=== PATIENT | male | born 1970 | race African-American/Black ===

== ENCOUNTER 2020-09-01 09:04 | Emergency (ER) | payer OTHER ==
[~2020-09-01] VITALS: Ht 180.3 cm; Wt 138.3 kg
[2020-09-01 09:11] VITALS: Ht 180.3 cm; Wt 138.3 kg
[2020-09-01 09:38] LABS: BASOPHIL % 1.1 % (0.2-1.5); PLATELET COUNT 220 x10^3mcL (152-348); RED CELL DISTRIBUTION WIDTH 13.4 % (12.1-16.2)
[2020-09-01 10:03] LABS: CALCIUM 9.3 mg/dL (8.5-10.1); CARBON DIOXIDE 28.2 mmol/L (21-32); CHLORIDE SERUM 106 mmol/L (98-107); GFR1 > 60 mL/min; GLUCOSE SERUM 129 mg/dL (74-106); POTASSIUM SERUM 4.2 mmol/L (3.5-5.1); SODIUM SERUM 142 mmol/L (136-145)
[2020-09-01 10:07] LABS: ALKALINE PHOSPHATASE 82 U/L (46-116); ALT/SGPT 46 U/L (16-63); AST/SGOT 28 U/L (15-37); BILIRUBIN TOTAL 0.4 mg/dL (0.20-1.00); TOTAL PROTEIN, SERUM 7.3 g/dL (6.4-8.2)
[2020-09-01 13:20] VITALS: BP 134/78
== END 2020-09-01 13:20 | disposition home or self-care (01) ==
LOC: ED 09:04
PROVIDERS: Student in an Organized Health Care Education/Training Program
DX: R07.89 Other chest pain (principal)
CPT/HCPCS: 85378